=== PATIENT | male | born 1965 | race African-American/Black ===

== ENCOUNTER 2020-02-08 11:26 | Emergency (ER) | payer OTHER ==
[~2020-02-08] VITALS: Ht 170.2 cm; Wt 73.5 kg
[2020-02-08 13:20] VITALS: BP 150/96
== END 2020-02-08 13:25 | disposition home or self-care (01) ==
LOC: ER 11:26
DX: R04.0 Epistaxis (principal); Z91.09 Other allergy status, other than to drugs and biological substances